=== PATIENT | female | born 1940 | race Caucasian/White ===

== ENCOUNTER 2025-10-11 11:26 | Observation (INO) ==
--- NOTE | 2025-09-10 12:14 | PAT Medication Instructions ---
Medication Instructions Date of Service September 10, 2025 Home Medications anastrozole 1 mg tablet 1 mg PO QPM calcium carbonate (Calcium 600) 600 mg PO DAILY cholecalciferol (vitamin D3) 25 mcg (1,000 unit) capsule (Vitamin D3) 25 mcg PO DAILY docusate sodium 100 mg tablet (Stool Softener) 100 mg PO DAILY latanoprost (PF) 0.005 % eye drops in a dropperette 1 drp ophthalmic (eye) HS levothyroxine 112 mcg tablet 112 mcg PO QAM multivitamin 1 tab PO DAILY omega-3 fatty acids 1 cap PO DAILY sertraline 50 mg tablet 75 mg PO QAM simvastatin 20 mg tablet 20 mg PO QPM timolol 0.5 % eye drops 1 drp ophthalmic (eye) BID vit C 250 mg-vit E 90 mg-zinc 40 mg-copper 1 [id number] capsule (PreserVision AREDS-2) 1 tab PO BID ASK your prescriber and surgeon anastrozole 1 mg tablet 1 mg PO QPM STOP taking 2 weeks before surgery (or as soon as possible if surgery is within 2 weeks) omega-3 fatty acids 1 cap PO DAILY vit C 250 mg-vit E 90 mg-zinc 40 mg-copper 1 [id number] capsule (PreserVision AREDS-2) 1 tab PO BID DO NOT take the morning of surgery calcium carbonate (Calcium 600) 600 mg PO DAILY cholecalciferol (vitamin D3) 25 mcg (1,000 unit) capsule (Vitamin D3) 25 mcg PO DAILY docusate sodium 100 mg tablet (Stool Softener) 100 mg PO DAILY multivitamin 1 tab PO DAILY Take morning of surgery With a small sip of water, OTHERWISE NOTHING TO EAT OR DRINK AFTER MIDNIGHT: levothyroxine 112 mcg tablet 112 mcg PO QAM sertraline 50 mg tablet 75 mg PO QAM timolol 0.5 % eye drops 1 drp ophthalmic (eye) BID Take evening before surgery latanoprost (PF) 0.005 % eye drops in a dropperette 1 drp ophthalmic (eye) HS simvastatin 20 mg tablet 20 mg PO QPM timolol 0.5 % eye drops 1 drp ophthalmic (eye) BID Other Notes If you have any questions please call us at [phone] or [phone] or [phone] or [phone]
--- NOTE | 2025-09-16 11:11 | Anesthesiology Consultation ---
Date of Service September 16, 2025 Assessment & Plan (1) Encounter for pre-operative examination: Chart Review Chart Review: Acceptable Risk for Surgery and Patient seen in Pre Admission Testing Right limb restriction - Patient is NOT an ideal OPJ candidate- patient and surgeon's office informed Per PAT appt on 09/16/25, no recent illness/disease exposures, illness related symptoms, or recent illness/disease positive tests. Will leave to surgeon's discretion if preop Covid testing needed Cardiology office visit 05/10/25= "... history of syncope and loop monitor who presents for cardiovascular follow up... loop record implanted has not shown any significant arrhythmias... Moderate TR with preserved EF (68%). No heart failure symptoms. Follow up with annual ECHOs. 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 Loop recorder placement... one bradycardia episode with three second pause, not concerning... Facial fracture 2021..." Teaching & Discussion Pre-Anesthesia Teaching/Discussion Notes: Instructed NPO after midnight before surgery,except medications with 15 cc of water. Medication instructions provided according to the PAT guidelines. History Surgery Operation Date: 10/11/25 12:55 Proposed Procedures p Right Total Shoulder Arthroplasty Reverse - Spike Small, Height/Weight Height: 5 ft 5 in Weight: 63.6 kg Allergies Allergy/AdvReac Type Severity Reaction Status Date / Time adhesive tape AdvReac Itching Verified 09/16/25 11:06 and rash Medications Home Medications Medication Instructions Recorded Confirmed Last Taken anastrozole 1 mg tablet 1 mg PO QPM 09/10/25 09/10/25 Unknown calcium carbonate (Calcium 600) 600 mg PO DAILY 09/10/25 09/10/25 Unknown cholecalciferol (vitamin D3) 25 25 mcg PO DAILY 09/10/25 09/10/25 Unknown mcg (1,000 unit) capsule (Vitamin D3) docusate sodium 100 mg tablet 100 mg PO DAILY 09/10/25 09/10/25 Unknown (Stool Softener) latanoprost (PF) 0.005 % eye drops 1 drp ophthalmic (eye) HS 09/10/25 09/10/25 Unknown in a dropperette levothyroxine 112 mcg tablet 112 mcg PO QAM 09/10/25 09/10/25 Unknown multivitamin 1 tab PO DAILY 09/10/25 09/10/25 Unknown omega-3 fatty acids 1 cap PO DAILY 09/10/25 09/10/25 Unknown sertraline 50 mg tablet 75 mg PO QAM 09/10/25 09/10/25 Unknown simvastatin 20 mg tablet 20 mg PO QPM 09/10/25 09/10/25 Unknown timolol 0.5 % eye drops 1 drp ophthalmic (eye) BID 09/10/25 09/10/25 Unknown vit C 250 mg-vit E 90 mg-zinc 40 1 tab PO BID 09/10/25 09/10/25 Unknown mg-copper 1 [id number] capsule (PreserVision AREDS-2) Past Medical History Medical History (Updated 09/16/25 @ 15:29 by Lora Oliver PA-C) Anxiety and depression CAD (coronary artery disease) Mild/nonobstructive per 2021 cath Hx of breast cancer 1989, right, sx and chemo 2014, left, sx only ~, left, sx and xrt Hx of hyperlipidemia Hx of pancreatitis (2016) 22 to gallbladder issues Hypothyroidism Implantable loop recorder present - present currently, placed in 2021 (after syncope episode with a fall showed a four beat episode of heart rate dropping in the the 30s and three second pause, often during sleep per cardio records ) - no significant arrhythmias since implantation - no further syncope Limb alert care status rt arm Macular degeneration Nausea and vomiting after administration of anesthetic agent does well when premedicated Stress-induced cardiomyopathy 2021- EF down to 45% (11/2021) - EF has since recovered (68% per 01/2022 ECHO) Exercise / Class Metabolic Activity III < 4 Walking/Shop/Light housework (no chest pain or SOB with flat surface ambulation ) Past Surgical History Surgical History History of bilateral tubal ligation History of dilatation and curettage History of thoracic surgery 2018, removal of cancer contained with chest wall Hx laparoscopic cholecystectomy (2016) Hx of bilateral cataract extraction Hx of colonoscopy (2022) Hx of facial fracture repair (2021) 2/2 fall, "no longer has sinuses on left side of face" >has titanium plates around eye orbit left side Hx of foot surgery left Hx of lumpectomy left side, 2014 and ~ Hx of mastectomy 1989 Hx of wisdom tooth extraction Past Anesthesia History No Hx of Anesthesia Complications (with exception to PONV) and No Family Hx of Anesthesia Complications History of PONV History of PONV (improved with pre medication of anti nausea medication ) and Hx of Motion Sickness Social History Smoking Status: Former smoker Do You Dip or Chew Tobacco: No Smoking End Date: 1984 Hx Alcohol Use: No Hx Substance Use: No substance use type: does not use Review of Systems - Occ reflux - relieved with Tums Patient denies chest pain, shortness of breath, dyspnea on exertion, cough, wheezing, palpitations. No hx of seizures, stroke, AL, apnea/snoring. No hx of blood clots or blood transfusions Physical Exam Vital Signs VITALS BP 149/65 P 61 TEMP 97.6 SP02 96% RESP 16 Constitutional no acute distress ENMT Mouth: no TMJ clicking Thyromental Distance: > or= 3.5 Finger Breadths (3.5) Mallampati Class: III Did have dental damage after fall in 2021- no significantly loose teeth Caps to side teeth Permanent bridge to left side Neck + limited neck extension Respiratory normal respiratory effort; no respiratory distress Auscultation: lungs clear to auscultation bilaterally; no wheezes Cardiovascular Rate/Rhythm: regular rate and regular rhythm Heart Sounds: no murmur Vessels: no carotid bruit Occ extra (rare) Musculoskeletal Spine: no pain with cervical ROM Extremities: extremities normal to inspection Psychiatric Orientation: alert Lab Results Anesthesia Preop Results Results Anesthesia Widget: WBC 4.98 K/ul (4.8-10.8) 09/16/25 Hgb 14.0 g/dL (12.0-16.0) 09/16/25 Hct 41.4 % (37.0-47.0) 09/16/25 Plt 232 K/uL (130-400) 09/16/25 PT 10.3 Seconds (9.0-12.0) 09/16/25 PTT 28 Seconds (21-31) 09/16/25 INR 1.0 (0.9-1.1) 09/16/25 Blood Type B Positive 09/16/25 Antibody Screen NEGATIVE 09/16/25 Testing Laboratory Results 09/10/25= SODIUM: 140 POTASSIUM: 4.5 CHLORIDE: 103 CO2: 27 BUN: 11 CREATININE: 0.6 GLUCOSE: 95 TSH: 0.66 Electrocardiogram Date: 01/03/25 Findings: + NSR @ (73bpm ) Left axis deviation Poor precordial R wave progression Nonspecific ST abnormality When compared to EKG from January 03, 2025- no significant change was found per cardio (Poor R wave progression/anteroseptal infarct present since at least Nov 2021 (had subsequent cardiac cath)) Chest X-Ray Date: 09/16/25 Findings: + NAD FINDINGS: Cardiac loop recorder is present. Heart size and pulmonary vasculature are normal. Lungs are mildly hyperexpanded. No consolidation or pleural effusion seen. There is mild scoliosis. Echocardiogram Date: 01/05/22 Compared to last available study changes are noted as followsLV systolic function is normalized Normal LV chamber size with mild concentric LVH Normal LV systolic function without regional wall motion abnormalities Calculated LVEF 68% Grade 1 DD Moderate TR Estimated PASP 30 mmHg Cardiac Catheterization Date: 12/01/21 Coronary disease- hemodynamically insignificant Large dominant RCA originating from right coronary sinus with no obstructive CAD Large type II LAD with no obstructive CAD Left circumflex is a large-caliber vessel with mild nonobstructive CAD in the distal left circumflex
--- NOTE | 2025-10-07 10:02 | History & Physical Report ---
Date of Service October 07, 2025 Assessment & Plan (1) Rotator cuff arthropathy of right shoulder: We will proceed with a right reverse shoulder arthroplasty. Postoperatively, she will be placed in a sling and will be kept overnight in the hospital for postop medical management. She plans to go to outpatient physical therapy at [place] after discharge. History of Present Illness Chief Complaint: Cuff tear arthropathy of the right shoulder. Primary Care Provider: NO PCP Le is a pleasant 85-year-old female who has been dealing with chronic worsening right shoulder pain. She does have a history of breast cancer on the right side. She had a significant amount of her chest wall removed. She was able to have full range of motion of her shoulder up until a few months ago. She began having significant pain. She denies any specific traumas. She has trouble doing anything away from her body or up overhead. She cannot sleep at night. She has profound weakness in that shoulder. She saw another provider. X-rays have shown cuff tear arthropathy. After failing extensive conservative treatment, she has elected proceed with a right reverse shoulder arthroplasty. Allergies Allergy/AdvReac Type Severity Reaction Status Date / Time adhesive tape AdvReac Itching Verified 09/16/25 11:06 and rash Home Medications Medication Instructions Recorded Confirmed Type anastrozole 1 mg tablet 1 mg PO QPM 09/10/25 09/10/25 History calcium carbonate (Calcium 600) 600 mg PO DAILY 09/10/25 09/10/25 History cholecalciferol (vitamin D3) 25 25 mcg PO DAILY 09/10/25 09/10/25 History mcg (1,000 unit) capsule (Vitamin D3) docusate sodium 100 mg tablet 100 mg PO DAILY 09/10/25 09/10/25 History (Stool Softener) latanoprost (PF) 0.005 % eye drops 1 drp ophthalmic (eye) HS 09/10/25 09/10/25 History in a dropperette levothyroxine 112 mcg tablet 112 mcg PO QAM 09/10/25 09/10/25 History multivitamin 1 tab PO DAILY 09/10/25 09/10/25 History omega-3 fatty acids 1 cap PO DAILY 09/10/25 09/10/25 History sertraline 50 mg tablet 75 mg PO QAM 09/10/25 09/10/25 History simvastatin 20 mg tablet 20 mg PO QPM 09/10/25 09/10/25 History timolol 0.5 % eye drops 1 drp ophthalmic (eye) BID 09/10/25 09/10/25 History vit C 250 mg-vit E 90 mg-zinc 40 1 tab PO BID 09/10/25 09/10/25 History mg-copper 1 [id number] capsule (PreserVision AREDS-2) Past Med/Surg History Problem List Encounter for pre-operative examination Rotator cuff arthropathy of right shoulder Medical History Stress-induced cardiomyopathy 2021- EF down to 45% (11/2021) - EF has since recovered (68% per 01/2022 ECHO) CAD (coronary artery disease) Mild/nonobstructive per 2021 cath Nausea and vomiting after administration of anesthetic agent does well when premedicated Hx of pancreatitis (2016) 2/2 to gallbladder issues Limb alert care status rt arm Hx of breast cancer 1989, right, sx and chemo 2014, left, sx only ~, left, sx and xrt Implantable loop recorder present - present currently, placed in 2021 (after syncope episode with a fall showed a four beat episode of heart rate dropping in the the 30s and three second pause, often during sleep per cardio records ) - no significant arrhythmias since implantation - no further syncope Macular degeneration Anxiety and depression Hx of hyperlipidemia Hypothyroidism Surgical History History of dilatation and curettage History of bilateral tubal ligation Hx of foot surgery left Hx laparoscopic cholecystectomy (2016) Hx of colonoscopy (2022) History of thoracic surgery 2019, removal of cancer contained with chest wall Hx of mastectomy 1989 Hx of lumpectomy left side, 2014 and ~ Hx of facial fracture repair (2021) 2/2 fall, "no longer has sinuses on left side of face" >has titanium plates around eye orbit left side Hx of wisdom tooth extraction Hx of bilateral cataract extraction Social History Smoking Status: Former smoker Smoking End Date: 1985; Second Hand Exposure: No; Do You Dip or Chew Tobacco: No; Tobacco Cessation Education Requested by Patient: No Hx Alcohol Use: No Hx Substance Use: No Preferred Language: Luxembourgish Communication Ability: Effective Projection Technician Required: No Beliefs That Will Affect Care: None Current Living Situation: Spouse Other Information That Helps Us Care for You: No Feels Safe at Home: Yes Safety Concerns: Feels Safe At This Time Assistive Devices: Glasses Review of Systems All systems reviewed & are unremarkable except as noted in HPI & below. Physical Exam Physical exam of the right shoulder, she has decreased range of motion. She basically has a pseudoparalysis. Passively I can get her through full range of motion.. Constitutional WD/WN, vitals as above Eyes PERRL, conjunctivae normal, anicteric sclerae ENMT external ear and nose normal, oropharynx normal Neck trachea midline, no thyromegaly Respiratory normal respiratory effort Cardiovascular RRR, no murmur, no edema Gastrointestinal (Abdomen) normal bowel sounds, soft, nontender, no hepatosplenomegaly Psychiatric A+Ox3, euthymic affect Results & Data Results & Data Laboratory Results . Diagnostic Findings . PG Care Time/CCT Total # of Minutes Spent Total Time Spent with Patient: Total time spent is greater than 50% in coordination of care (as documented) at patient's floor/unit and/or counseling patient: Coding Level of Care Code None Diagnoses Rotator cuff arthropathy of right shoulder M12.811
[~2025-10-11 11:26] MED LIST: BUPIVACAINE 0.5 % 5 MG/1 ML PF 10ML VIAL ONE
[2025-10-11] MEDS: LR 60ML/HR IV SCH (12:08)
[2025-10-11] MEDS: LR 15ML/HR IV SCH (12:09)
[2025-10-11] MEDS: ACETAMINOPHEN 500 MG TAB PO SCH ×2 (12:09→22:01)
[2025-10-11] MEDS: FAMOTIDINE 20 MG TAB PO SCH (12:09)
[2025-10-11] MEDS: GABAPENTIN 300 MG CAP PO SCH (12:09)
[2025-10-11] MEDS: dexAMETHasone**PF** 10 MG/ML VIAL IV SCH (12:09)
[2025-10-11] MEDS ORDERED: MIDAZOLAM HCL 1 MG/ML 2ML VIAL ONE (12:15)
[2025-10-11] MEDS ORDERED: LIDOCAINE 2% 2 ML VIAL/AMP(20MG/ML) INFIL ONE (12:17)
[2025-10-11] MEDS ORDERED: PROPOFOL IV EMULSION 10 MG/ML 20 ML VIAL IV ONE (12:17)
[2025-10-11] MEDS ORDERED: ROCURONIUM BROMIDE 10 MG/ML 5 ML VIAL IV ONE (12:17)
--- NOTE | 2025-10-11 12:23 | History & Physical Bridge Note ---
Date of Service October 11, 2025 History & Physical Bridge Note I have examined the patient, reviewed the History & Physical and in the interval since the performance of the History & Physical I have noted the following changes of clinical significance: no changes noted
[2025-10-11] MEDS ORDERED: ATROPINE SULFATE 0.1 MG/ML 10ML SYR IV PRN (13:04)
[2025-10-11] MEDS ORDERED: ONDANSETRON INJ 2 MG/ML 2 ML VIAL IV PRN (13:04)
[2025-10-11] MEDS: TRANEXAMIC ACID 1,000 MG **IV Pre-op IV SCH (13:17)
[2025-10-11] MEDS ORDERED: ESMOLOL HCL INJ 10 MG/ML 10ML VIAL IV ONE (13:39)
[2025-10-11] MEDS: ORTHO JOINT ANESTHETIC ONE (13:59)
[2025-10-11] MEDS: ROPIV 0.5% 246mg, Ketorolac 30mg, EPINEPHrine 0.5mg in NSS INFIL SCH (13:59)
[2025-10-11] MEDS ORDERED: ONDANSETRON INJ 2 MG/ML 2 ML VIAL ONE (14:19)
[2025-10-11] MEDS ORDERED: SUGAMMADEX SODIUM 200 MG/2 ML VIAL IV ONE (14:21)
--- NOTE | 2025-10-11 14:23 | Operative Report ---
PG Post Operative Report Pre & Post Diagnosis Operation Date: 10/11/25 13:30 Pre-Op Diagnosis: Cuff tear arthropathy right shoulder with tendinopathy long head of the biceps tendon Post-Op Diagnosis: Cuff tear arthropathy of the right shoulder with tendinopathy long head of the biceps tendon I identified the patient and participated in the time-out.: Yes Procedure Operation Date: 10/11/25 13:30 Actual Procedures p Right Reverse Total Shoulder Arthroplasty, Uncemented(Right) with open biceps tenodesis as a distinct and separate procedure (modifier 59)- Spike Small DO Surgeon Spike Small DO [employer] Architect Thomas Damon PA-C Estimated Blood Loss 150 Findings Consistent with Post-Op Diagnosis Specimens Right humeral head Description of Procedure A CPT code modifier 59: The long head of the biceps tendon was enlarged and inflamed consistent with tendinopathy. A tenodesis was opted. This was a separate and distinct portion of the procedure. For these reasons, a CPT code modifier 59 will be added to this case. Implants used: I used a [employer] Comprehensive reverse total shoulder arthroplasty system with a size 13 press fit micro humeral stem, a +6 offset humeral tray and a +3 retentive humeral bearing, a 25 mm small augment baseplate with a 6.5 mm central screw and superior and inferior locking screws, and a size 36 mm eccentric glenosphere. Le arrived at [facility] for the above procedure. He was seen in the preoperative holding area and the operative extremity was identified and signed. He was given a preoperative antibiotic, TXA, and an interscalene nerve block. He was taken back to the operating room, laid on table in supine position, and put under general anesthesia. He was then put into the beachchair position. The shoulder was then prepped and draped in sterile fashion. A timeout was done and the patient and the operative extremity was properly identified. A deltopectoral approach was used. Dissection was taken down through the fascia and the deltoid was retracted laterally and the conjoined tendon was retracted medially. The anterior shoulder was exposed. The biceps groove was opened up and the biceps tendon was examined extensively. The biceps tendon demonstrated enlargement and inflammatory changes consistent with longstanding inflammation in the context of osteoarthritis and cuff arthropathy. The long head of the biceps tendon was then tenodesed to the upper border of the pectoralis major. This was a separate and distinct portion of the procedure. The subscapularis was then directly released off the lesser tuberosity with a peel technique. The inferior capsule was released and the humeral head was dislocated. A canal finding reamer was sent down the center of the humeral canal. Sequential reaming up to a size 13 reamer was done. Off that reamer, a proximal humeral resection guide was placed. The proximal humerus was resected at 135 of inclination and 25 of retroversion. Osteophytes were then removed and the glenoid was exposed. Time was spent doing a complete capsular and labral relea se. The glenoid guide was then placed in the inferior aspect of the glenoid. A 3.2 mm Steinmann pin was then placed into the glenoid vault at 10 of inclination. The glenoid baseplate was then reamed. The final size 25 mm small augment baseplate was then impacted in the place. A 6.5 mm central screw was then placed followed by superior and inferior locking screws. A 36 mm eccentric glenosphere was then impacted into place. Surrounding soft tissues were then injected with 100 cc an orthopedic pain control cocktail. The proximal humerus was then exposed. Sequential broaching of the humerus up to a size 13 broach was done. Off that broach a +6 offset and +3 retentive humeral tray was trialed. The shoulder was then reduced, brought through a full range of motion, and felt to be stable. The shoulder was then dislocated and the broach was removed. The final size 13 micro press-fit humeral stem was then impacted into place. A +3 retentive humeral bearing was then snapped onto a +6 offset humeral tray. The humeral tray was then impacted onto the humeral stem. The shoulder was once again reduced, brought through a full range of motion, and felt to be stable. The subscapularis was poor quality and unable to be repaired.. An Irrisept lavage was then done for 3 minutes. The joint was then irrigated with normal saline solution. Hemostasis was obtained. The interval was closed with 2-0 Vicryl suture. The skin was then closed with 2-0 Vicryl and Evans Zipline. A Silverlon dressing was placed and the arm was rested in a regular arm sling. He was then extubated and transferred to a hospital bed. He taken to the postanesthesia care unit in stable condition. He tolerated the procedure well. Thomas Damon PA-C, was present for the entire procedure. He was critical for patient positioning, prepping, draping, retraction exposure, wound closure and application of sterile dressing. I attest to the content of the Intraoperative Record and any orders documented therein. Any exceptions are noted below.
--- NOTE | 2025-10-11 15:13 | Anesthesiology Progress Note ---
Date of Service October 11, 2025 Anesthesia Post Procedure Vital Signs Vital Signs: Temp Pulse Resp BP Pulse Ox O2 Del Method O2 Flow Rate 10/11/25 15:05 79 17 152/82 H 100 Oxymask 7 10/11/25 14:55 81 14 138/74 100 Oxymask 7 10/11/25 14:45 36.0 C L 75 27 H 155/76 H 100 Oxymask 7 10/11/25 11:51 36.7 C 63 20 146/85 H 97 Room Air Pain Intensity Right Shoulder: Pain Intensity: 0 Transfer of Care Handoff Completed per policy Notes Mental Status: alert / awake / arousable Patient Amnestic to Procedure: Yes Nausea / Vomiting: adequately controlled Pain: adequately controlled Airway Patency, RR, SpO2: stable & adequate BP & HR: stable & adequate Hydration State: stable & adequate Anesthetic Complications: no major complications apparent and Pt Satisfied with anesthetic care
--- NOTE | 2025-10-11 15:21 | XRay Report ---
XR shoulder RT min 2V routine HISTORY: 85 years-old Female Post shoulder surgery right shoulder arthroplasty COMPARISON: Chest x-ray 09/16/2025 TECHNIQUE: 2 views of right shoulder FINDINGS: Satisfactory alignment of the reverse right shoulder arthroplasty. No acute fracture or unexpected op aque foreign body. Expected soft tissue swelling with deep tissue air. IMPRESSION: Satisfactory alignment of the right shoulder arthroplasty ACT 112: Negative or not required by law. The above report was generated using voice recognition software. It may contain grammatical, syntax o r spelling errors. Electronically signed by: Conner Biswas M.D. 10/11/2025 3:20 PM
[2025-10-11] MEDS ORDERED: METOCLOPRAMIDE HCL INJ 5 MG/ML 2 ML VIAL IV PRN (15:45)
[2025-10-11] MEDS ORDERED: NALOXONE HCL 0.4 MG/1 ML VIAL/CARP IV PRN (15:45)
[2025-10-11] MEDS ORDERED: MAGNESIUM HYDROXIDE SUSP 30 ML UDC PO PRN (15:45)
[2025-10-11] MEDS: BUPIVACAINE LIPOSOME 1.3% 133 MG/10 ML VIAL ONE (16:02)
[2025-10-11] MEDS: SODIUM CHLORIDE 0.9% 1,000 ML IV SCH (16:11)
[2025-10-11] MEDS: KETOROLAC TROMETHAMINE 15 MG/ML VIAL IV SCH (16:12)
[2025-10-11] MEDS: TIMOLOL MALEATE 0.5% OP SOLN 5 ML BTL OP SCH (21:57)
[2025-10-11] MEDS: DOCUSATE SODIUM 100 MG CAP PO SCH (22:01)
[2025-10-11] MEDS: SENNA 8.6 MG TAB PO SCH (22:01)
[2025-10-11] MEDS: SIMVASTATIN 20 MG TAB PO SCH (22:03)
[2025-10-11] MEDS: ANASTROZOLE 1 MG TAB PO SCH (22:03)
[2025-10-12] MEDS: LEVOTHYROXINE SODIUM 112 MCG TABLET PO SCH (05:54)
[2025-10-12 06:55] VITALS: BP 102/63; PULSE 72; RESP 16; TEMP 97.5; O2SAT 97
[2025-10-12] MEDS: SERTRALINE HCL 50 MG TABLET PO SCH (08:11)
[2025-10-12] MEDS: MULTIVITAMIN TAB PO SCH (08:11)
[2025-10-12] MEDS: HYDROmorphone INJ 0.5 MG/0.5 ML SYR IV PRN (08:13)
--- NOTE | 2025-10-12 08:59 | Orthopedic Progress Note ---
Date of Service October 12, 2025 Assessment & Plan (1) Status post reverse arthroplasty of right shoulder: * Continue Current Treatment * Disposition: home * Daily treatment: Physical Therapy/ Occupational Therapy per protocol * Weight bearing status: NWB RUE, maintain sling * Continue to monitor for ABLA * Pain control * DVT prophylaxis, ASA * Office/hospital f/u 2 weeks for progress check and staple/suture removal * Plan for discharge today pending PT/OT clearance Subjective . Active Problems: S/p right rTSA POD 1 85 y/o female s/p right rTSA. Doing well overall, pain managed and improved function. Denies fever/chills, chest pain/SOB, nausea/vomiting. Otherwise no complaints. Review of Systems All systems reviewed & are unremarkable except as noted in HPI & below. Physical Exam .General: Alert and oriented, no acute distress * Constitutional: well-developed, well-nourished. * Respiratory: Normal respiratory effort, no distress * Gastrointestinal: No tenderness to palpation, no rigidity or guarding. * Skin: No rash or lesion. * Neurologic: Grossly normal * Musculoskeletal: right shoulder surgical dressing CDI, not removed for exam. Otherwise no obvious deformity or overlying skin changes. Diffuse TTP upper arm and shoulder region. Otherwise no specific tenderness of upper arm, elbow, forearm, wrist/hand. AROM shoulder not assessed. AROM elbow, wrist/hand intact. Sensation intact radial/median/ulnar nerve distributions. Brisk capillary refill. Results & Data Results & Data Laboratory Results . Diagnostic Findings . Shoulder X-Ray 10/11/25 14:43 XR shoulder RT min 2V routine HISTORY: 85 years-old Female Post shoulder surgery right shoulder arthroplasty COMPARISON: Chest x-ray 09/16/2025 TECHNIQUE: 2 views of right shoulder FINDINGS: Satisfactory alignment of the reverse right shoulder arthroplasty. No acute fracture or unexpected opaque foreign body. Expected soft tissue swelling with deep tissue air. IMPRESSION: Satisfactory alignment of the right shoulder arthroplasty ACT 112: Negative or not required by law. The above report was generated using voice recognition software. It may contain grammatical, syntax or spelling errors. Electronically signed by: Conner Biswas M.D. 10/11/2025 3:20 PM PG Care Time/CCT Total # of Minutes Spent Total Time Spent with Patient: Total time spent is greater than 50% in coordination of care (as documented) at patient's floor/unit and/or counseling patient: Coding Level of Care Code 30478 Post Operative Follow-Up Diagnoses Status post reverse arthroplasty of right shoulder Z96.611
[2025-10-12] MEDS: ONDANSETRON INJ 2 MG/ML 2 ML VIAL IV PRN (11:33)
== END 2025-10-12 12:30 | disposition home or self-care (01) ==
LOC: 3E 11:26 → ASU 11:26
DX: Z79.899 Other long term (current) drug therapy; I25.10 Atherosclerotic heart disease of native coronary artery without angina pectoris; M12.811 Other specific arthropathies, not elsewhere classified, right shoulder; Z79.890 Hormone replacement therapy; Z85.3 Personal history of malignant neoplasm of breast; Z87.891 Personal history of nicotine dependence; E78.5 Hyperlipidemia, unspecified; M75.21 Bicipital tendinitis, right shoulder; Z91.048 Other nonmedicinal substance allergy status